=== PATIENT | female | born 1985 | race Two or more races ===

== ENCOUNTER 2020-05-02 23:48 | Emergency (ER) | payer MEDICAID ==
[~2020-05-02] VITALS: Ht 165.1 cm; Wt 71.2 kg
--- NOTE | 2020-05-03 00:42 | NUR ---
at bedside for assessment
--- NOTE | 2020-05-03 00:59 | NUR ---
urine collected and sent to lab at this time
[2020-05-03 01:08] LABS: *URINE HCG, QUAL NEGATIVE (NEGATIVE)
[2020-05-03 01:17] LABS: *AMPHETAMINE, URINE NEGATIVE (NEGATIVE); *BARBITURATE, URINE NEGATIVE (NEGATIVE); *CANNABINOID, URINE NEGATIVE (NEGATIVE); *COCCAINE, URINE NEGATIVE (NEGATIVE); *OPIATE, URINE POSITIVE (NEGATIVE); *PHENCYCLIDINE SCREEN,URINE NEGATIVE (NEGATIVE)
--- NOTE | 2020-05-03 01:42 | NUR ---
Patient discharged to home in stable condition. Noted ambulating in steady manner. Written and verbal after care instructions given. no signs of acute distress noted. Patient verbalizes understanding of instructions. Stressed follow up or return to ER for worsening s/s.
[2020-05-03 01:48] VITALS: BP 129/84
== END 2020-05-03 01:48 | disposition home or self-care (01) ==
LOC: ER 23:56
DX: M54.2 Cervicalgia (principal); Z91.030 Bee allergy status; R03.0 Elevated blood-pressure reading, without diagnosis of hypertension
CPT/HCPCS: 84703; A4663